=== PATIENT | male | born 1990 | race Caucasian/White ===

== ENCOUNTER → 2021-05-22 | Outpatient (CLI) | payer OTHER ==
[~2021-05-22] VITALS: Ht 172.7 cm; Wt 118.0 kg
[~2021-05-22] MED LIST: ACETAMINOPHEN 500 MG TAB (TYLENOL) PO PRN; CASIRIVIMAB/IMDEVIMAB 1,200 MG in NS (IVPB) 250 ML IV ONE; EPINEPHrine INJECTION 1 MG/ML AMP IM PRN; ONDANSETRON 4 MG/2 ML (SDV) Z0FRAN IV PRN; diphenhydrAMINE 50 MG/ML INJ (BENADRYL) IV PRN
[2021-05-22 09:15] VITALS: BP 131/73
[2021-05-22 10:49] VITALS: BP 125/68
== END ==
LOC: INFUSION 09:14
PROVIDERS: ATTEND Emergency Medicine
DX: U07.1 COVID-19 (principal)